=== PATIENT | female | born 1980 | race Caucasian/White ===

== ENCOUNTER 2016-07-31 22:54 | Emergency (ER) | payer OTHER ==
[~2016-07-31] VITALS: Ht 170.2 cm; Wt 145.0 kg
[~2016-07-31 22:54] MED LIST: ADDERALL XR 1010 MG PO; ADDERALL XR 2020 MG PO; ADDERALL20 MG PO; ADVAIR 250-501 EACH IH; ADVAIR 500/501 DISK IH; ALBUTEROL SULF8.5 GM IH; ALBUTEROL17 G1 IH; ALBUTEROL17 GM IH; ALBUTEROL2.5 MG/3 M IH; AMOX TR-K CLV1 EAC4 PO; ATARAX,VISTARIL25 MG PO; ATARAX10 MG PO; ATIVAN0.5 MG PO; ATROVENT 00.5 MG/2.5 IH; AUGMENTIN875 MG PO; AZITHROMYCIN250 MG1 PO; AZITHROMYCIN500 M1 PO; BACTRIM,SEPT1 TABLET PO; BENTYL10 MG PO; BENZONATATE100 MG PO; BIAXIN500 MG PO; CALMOSEPTINE O3.5 GM TP; CELEXA10 MG PO; CELEXA20 MG PO; CITALOPRAM HBR10 MG PO; CITALOPRAM HBR20 MG PO; CITALOPRAM HBR40 MG PO; CLARITIN,ALAVAR10 MG PO; CLONAZEPAM0.5 MG PO; COMBIVENT200 INHALA IH; CYCLOBENZAPRINE10 MG PO; DIFLUCAN150 MG PO; DUONEB 2.5-0.5 M3 ML AEROSOL; ERYTHROMYC1 APPLICAT RIGHT EYE; FERROUS SULFAT325 MG PO; FLEXERIL10 MG PO; FLONASE16 G1 BOTH NARES; FLOVENT 11120 INHALA IH; FUROSEMIDE20 MG PO; GUANFACINE HCL2 MG PO; HYDROCHLOROTH12.5 M3 PO; HYDROCODON-ACE1 EAC7 PO; IRON325 M1 PO; IRON325 MG PO; KEFLEX500 MG PO; KETOCONAZOLE60 GM TP; KLONOPIN0.5 M1 PO; KLONOPIN1 MG PO; LEVAQUIN750 MG PO; LIDOCAINE700 MG TD; LISINIPRIL PO; LORADAMED10 MG PO; LORATADINE10 M2 PO; Levaquin PO; MICONAZOLE NITR30 GM TP; MICONAZOLE NITR45 GM VG; MILK OF MAGN PO; MOBIC15 MG PO; MONTELUKAST SOD10 MG PO; MOTRIN800 MG PO; MYCOSTATIN15 GM PO; NAPROSYN500 MG PO; NAPROXEN500 MG PO; NORCO 5/3251 TABLET PO; NYAMYC60 GM TP; NYSTATIN-TRIAMC15 G1 TP; NYSTATIN15 GM TP; NYSTOP60 GM TP; OLEPTRO ER150 MG PO; OMEPRAZOLE40 M1 PO; PERCOCET 5/31 TABLET PO; PHENERGAN-CODE120 ML PO; PREDNISONE PO; PREDNISONE10 MG PO; PREDNISONE20 MG PO; PREDNISONE5 MG PO; PREDNISONE50 MG PO; PROAIR HFA8.5 GM IH; PROCTOSOL-HC28.35 GM PR; PROVENTIL,2.5 MG/3 M IH; PROVENTIL2.5 MG/3 M IH; PROZAC10 MG PO; PULMICORT90 MICROGR IH; RISPERIDONE0.5 MG PO; SEREVENT DISKU50 MCG IH; SINGULAIR10 MG PO; SKELAXIN400 M1 PO; SPIRIVA RESPIMAT4 GM IH; SPIRIVA1 INHALATI IH; SYMBICORT60 INHALAT IH; TAMIFLU75 MG PO; TESSALON PERLE100 MG PO; TRILEPTAL300 MG PO; ULTRAM50 MG PO; VALACYCLOVIR1000 MG PO; VALACYCLOVIR500 MG PO; VALIUM2 MG PO; VALIUM5 MG PO; VENTOLIN HFA18 GM; VENTOLIN HFA18 GM IH; VYVANSE30 MG PO; VYVANSE40 MG PO; WELLBUTRIN XL150 MG PO; ZITHROMAX Z-PA250 MG PO; ZITHROMAX250 MG PO; ZITHROMAX500 MG PO; ZYRTEC10 M2 PO
[2016-08-01 00:21] LABS: CHLORIDE 108 mEq/L (99-109); POTASSIUM 3.4 mEq/L (3.7-5.4); SODIUM 142 mEq/L (136-147)
[2016-08-01 00:23] LABS: GLUCOSE 107 mg/dL (70-99)
[2016-08-01 00:24] LABS: ANION GAP 10 MEQ/L (2-14)
[2016-08-01 00:27] LABS: GFR ESTIMATE (CALCULATED) > 59 mL/min/
[2016-08-01 00:28] LABS: UREA NITROGEN (BUN) 10 mg/dL (9-23)
[2016-08-01 00:31] LABS: RED BLOOD COUNT 4.69 M/uL (3.80-5.20); WHITE BLOOD COUNT 8.9 K/uL (4.1-10.2)
[2016-08-01 00:32] LABS: HEMATOCRIT 35.2 % (36.0-46.0); MCH 23.2 PG (29.0-34.0); MCV 75.1 FL (83-99); MEAN PLAT.VOLUME 9.6 uM^3 (9.5-12.4); PLATELET COUNT 370 K/uL (156-360); RBC DIS.WIDTH-CV 14.9 % (11.8-14.6)
[2016-08-01 02:12] LABS: INFLUENZA A VIRAL ANTIGEN NEGATIVE; INFLUENZA B VIRAL ANTIGEN NEGATIVE
[2016-08-01] MEDS ORDERED: PREDNISONE10 MG PO (04:05)
[2016-08-01] MEDS ORDERED: VENTOLIN HFA18 GM IH (04:13)
[2016-08-01 04:31] VITALS: BP 138/67
== END 2016-08-01 04:32 | disposition home or self-care (01) ==
LOC: EME 22:54
PROVIDERS: Emergency Medicine
DX: J45.901 Unspecified asthma with (acute) exacerbation (principal); R11.0 Nausea; J44.9 Chronic obstructive pulmonary disease, unspecified; I10 Essential (primary) hypertension; E11.9 Type 2 diabetes mellitus without complications
CPT/HCPCS: 71020; 80048; 85027; 87502; 94644; 99281; 99284; J2930; J7030; J7644

== ENCOUNTER 2016-08-30 19:02 | Inpatient (IN) | payer OTHER ==
[~2016-08-30] VITALS: Ht 168.9 cm; Wt 166.7 kg
[2016-08-30 20:23] LABS: HEMATOCRIT 35.2 % (36.0-46.0); MCH 23.3 PG (29.0-34.0); MCHC 30.7 G/DL (30.0-36.0); MEAN PLAT.VOLUME 9.2 uM^3 (9.5-12.4); PLATELET COUNT 365 K/uL (156-360); RBC DIS.WIDTH-CV 15.3 % (11.8-14.6); RBC DIS.WIDTH-SD 41.4 % (39-53); RED BLOOD COUNT 4.63 M/uL (3.80-5.20); WHITE BLOOD COUNT 9.3 K/uL (4.1-10.2)
[2016-08-30 20:31] LABS: CHLORIDE 110 mEq/L (99-109); POTASSIUM 3.2 mEq/L (3.7-5.4); SODIUM 144 mEq/L (136-147)
[2016-08-30 20:33] LABS: GLUCOSE 119 mg/dL (70-99)
[2016-08-30 20:34] LABS: ANION GAP 10 MEQ/L (2-14)
[2016-08-30 20:36] LABS: GFR ESTIMATE (CALCULATED) > 59 mL/min/
[2016-08-30 20:37] LABS: UREA NITROGEN (BUN) 12 mg/dL (9-23)
[2016-08-30] MEDS ORDERED: DELTASONE20 M1 PO (22:56)
[2016-08-30] MEDS ORDERED: FLONASE16 G1 BOTH NARES (22:57)
[2016-08-30] MEDS ORDERED: DUONEB 2.5-0.5 M3 ML AEROSOL (22:57)
[2016-08-30] MEDS ORDERED: CHILDREN MULTI1 EACH PO (22:57)
[2016-08-30] MEDS ORDERED: XOLAIR150 MG SC (22:58)
[2016-08-30] MEDS ORDERED: NYSTOP60 GM TP (22:58)
[2016-08-31] VITALS: BP 121/57
[2016-08-31 04:00] VITALS: BP 139/74
[2016-08-31 07:16] VITALS: BP 109/57
[2016-08-31 07:40] LABS: HEMATOCRIT 35.4 % (36.0-46.0); MCH 23.4 PG (29.0-34.0); MCHC 30.5 G/DL (30.0-36.0); MCV 76.8 FL (83-99); MEAN PLAT.VOLUME 9.9 uM^3 (9.5-12.4); PLATELET COUNT 327 K/uL (156-360); RBC DIS.WIDTH-CV 15.3 % (11.8-14.6); RED BLOOD COUNT 4.61 M/uL (3.80-5.20); WHITE BLOOD COUNT 9.6 K/uL (4.1-10.2)
[2016-08-31 07:56] LABS: IRON 18 MCG/DL (35-150)
[2016-08-31 08:01] LABS: ANION GAP 9 MEQ/L (2-14); CHLORIDE 105 MEQ/L (99-109); GFR ESTIMATE (CALCULATED) > 59 mL/min/; GLUCOSE 131 mg/dL (70-99); SAMPLE HEMOLYSIS CHECK 0; SAMPLE ICTERIC CHECK 0; SAMPLE LIPEMIA CHECK 0; SODIUM 139 MEQ/L (136-147); UREA NITROGEN (BUN) 9 mg/dL (9-23)
[2016-08-31 08:03] LABS: POTASSIUM 4.3 MEQ/L (3.7-5.4)
[2016-08-31 08:40] LABS: FERRITIN 6 NG/ML (10-291)
[2016-08-31 11:01] VITALS: BP 136/65
[2016-08-31 14:59] VITALS: BP 146/86
[2016-08-31 20:33] VITALS: BP 145/66
[2016-09-01 00:09] VITALS: BP 102/56
[2016-09-01 04:13] VITALS: BP 126/60
[2016-09-01 06:57] LABS: HEMATOCRIT 35.3 % (36.0-46.0); MCH 23.3 PG (29.0-34.0); MCHC 30.3 G/DL (30.0-36.0); MCV 76.9 FL (83-99); MEAN PLAT.VOLUME 9.8 uM^3 (9.5-12.4); PLATELET COUNT 354 K/uL (156-360); RBC DIS.WIDTH-CV 15.7 % (11.8-14.6); RED BLOOD COUNT 4.59 M/uL (3.80-5.20)
[2016-09-01 07:00] LABS: WHITE BLOOD COUNT 15.7 K/uL (4.1-10.2)
[2016-09-01 07:06] LABS: ANION GAP 9 MEQ/L (2-14); CHLORIDE 104 MEQ/L (99-109); GFR ESTIMATE (CALCULATED) > 59 mL/min/; GLUCOSE 114 mg/dL (70-99); POTASSIUM 4.6 MEQ/L (3.7-5.4); SAMPLE HEMOLYSIS CHECK 0; SAMPLE ICTERIC CHECK 0; SAMPLE LIPEMIA CHECK 0; SODIUM 139 MEQ/L (136-147); UREA NITROGEN (BUN) 14 mg/dL (9-23)
[2016-09-01 08:10] VITALS: BP 119/74
[2016-09-01 11:30] VITALS: BP 132/69
[2016-09-01] MEDS ORDERED: PREDNISONE10 MG PO (14:33)
== END 2016-09-01 16:05 | disposition home or self-care (01) | DRG 191 ==
LOC: EME → EDBD 19:02 → EDOF 23:16 → 5SOUTH 23:16
PROVIDERS: Internal Medicine; Physician Assistant
DX: J44.1 Chronic obstructive pulmonary disease with (acute) exacerbation (principal); Z68.43 Body mass index [BMI] 50.0-59.9, adult; E66.01 Morbid (severe) obesity due to excess calories; E87.6 Hypokalemia; K21.9 Gastro-esophageal reflux disease without esophagitis; G47.33 Obstructive sleep apnea (adult) (pediatric); Z91.5 Personal history of self-harm; F31.9 Bipolar disorder, unspecified; D50.9 Iron deficiency anemia, unspecified; F41.9 Anxiety disorder, unspecified; I10 Essential (primary) hypertension; E11.9 Type 2 diabetes mellitus without complications; G43.909 Migraine, unspecified, not intractable, without status migrainosus; M25.562 Pain in left knee; F60.9 Personality disorder, unspecified; Z90.49 Acquired absence of other specified parts of digestive tract
CPT/HCPCS: 71020; 73560; 80048; 82728; 83540; 84466; 85027; 94640 76; 94644; 94660; 94799; 99202; 99281; 99285; J1100; J1644; J2060; J2405; J2930; J3105; J7644

== ENCOUNTER 2016-11-24 21:21 | Inpatient (IN) | payer OTHER ==
[~2016-11-24] VITALS: Ht 167.6 cm; Wt 162.3 kg
[~2016-11-24 21:21] MED LIST changes: +CHILDREN MULTI1 EACH PO; +DELTASONE20 M1 PO; +XOLAIR150 MG SC
[2016-11-24 21:54] LABS: CARBON DIOXIDE (BICARBONATE) 29.2 MEQ/L (20-31); HEMATOCRIT 37.2 % (36.0-46.0); MCH 23.7 PG (29.0-34.0); MCHC 30.6 G/DL (30.0-36.0); MCV 77.2 FL (83-99); MEAN PLAT.VOLUME 9.1 uM^3 (9.5-12.4); PLATELET COUNT 382 K/uL (156-360); RBC DIS.WIDTH-CV 14.6 % (11.8-14.6); RBC DIS.WIDTH-SD 40.5 % (39-53); RED BLOOD COUNT 4.82 M/uL (3.80-5.20); WHITE BLOOD COUNT 12.2 K/uL (4.1-10.2)
[2016-11-24 22:09] LABS: CHLORIDE 107 mEq/L (99-109); POTASSIUM 3.9 mEq/L (3.7-5.4); SODIUM 140 mEq/L (136-147)
[2016-11-24 22:11] LABS: GLUCOSE 89 mg/dL (70-99)
[2016-11-24 22:12] LABS: ANION GAP 10 MEQ/L (2-14)
[2016-11-24 22:14] LABS: GFR ESTIMATE (CALCULATED) > 59 mL/min/
[2016-11-24 22:15] LABS: UREA NITROGEN (BUN) 8 mg/dL (9-23)
[2016-11-24 22:18] LABS: TROP-I INTERPRETATION NEGATIVE; TROPONIN-I < 0.01 ng/mL (0.0-0.30)
[2016-11-24] MEDS ORDERED: FERROUS SULFAT325 MG PO (23:11)
[2016-11-24] MEDS ORDERED: DAILY VALUE1 EACH PO (23:15)
[2016-11-24] MEDS ORDERED: PREDNISONE10 MG PO (23:16)
[2016-11-24] MEDS ORDERED: IBUPROFEN600 MG PO (23:18)
[2016-11-25 02:17] VITALS: BP 106/61
[2016-11-25 06:23] LABS: BASOPHIL COUNT 0.1 K/uL (0-0.1); EOSINOPHIL (%) 0.4 % (0-5); EOSINOPHIL COUNT 0.1 K/uL (0-0.3); HEMATOCRIT 31.5 % (36.0-46.0); IMMATURE GRANULOCYTE (%) 0.5 % (0.0-0.7); IMMATURE GRANULOCYTE COUNT 0.1 K/uL; INSTRUMENT ABS NEUTROPHIL CT 10.3 K/uL; LYMPHOCYTE COUNT 1.3 K/uL (1.0-2.8); MCH 24.1 PG (29.0-34.0); MCHC 31.4 G/DL (30.0-36.0); MCV 76.8 FL (83-99); MEAN PLAT.VOLUME 9.9 uM^3 (9.5-12.4); MONOCYTE (%) 8.1 % (3-12); NEUTROPHIL (%) 80.4 % (45-76); NEUTROPHIL COUNT 10.3 K/uL (1.8-6.4); PLATELET COUNT 309 K/uL (156-360); RBC DIS.WIDTH-CV 14.7 % (11.8-14.6); RBC DIS.WIDTH-SD 40.6 % (39-53); WHITE BLOOD COUNT 12.8 K/uL (4.1-10.2)
[2016-11-25 06:51] LABS: ANION GAP 6 MEQ/L (2-14); CHLORIDE 104 MEQ/L (99-109); GFR ESTIMATE (CALCULATED) > 59 mL/min/; GLUCOSE 102 mg/dL (70-99); SAMPLE HEMOLYSIS CHECK 0; SAMPLE ICTERIC CHECK 0; SAMPLE LIPEMIA CHECK 0; SODIUM 137 MEQ/L (136-147); UREA NITROGEN (BUN) 9 mg/dL (9-23)
[2016-11-25 08:45] VITALS: BP 113/69
[2016-11-25 10:52] VITALS: BP 110/74
[2016-11-25 14:35] LABS: INFLUENZA A VIRAL ANTIGEN NEGATIVE; INFLUENZA B VIRAL ANTIGEN NEGATIVE
[2016-11-25 14:59] LABS: METH RESISTANT S AUREUS PCR POSITIVE (NEGATIVE)
[2016-11-25 15:00] LABS: PROBE CHECK PASS
[2016-11-25 15:24] VITALS: BP 141/76
[2016-11-25 19:47] VITALS: BP 115/57
[2016-11-25 23:32] VITALS: BP 120/58
[2016-11-26 03:32] VITALS: BP 106/61
[2016-11-26 07:26] LABS: EOSINOPHIL (%) 0 % (0-5); HEMATOCRIT 35.5 % (36.0-46.0); IMMATURE GRANULOCYTE (%) 0.7 % (0.0-0.7); IMMATURE GRANULOCYTE COUNT 0.1 K/uL; LYMPHOCYTE COUNT 0.8 K/uL (1.0-2.8); MCH 23.9 PG (29.0-34.0); MCHC 30.4 G/DL (30.0-36.0); MCV 78.7 FL (83-99); MONOCYTE (%) 2.2 % (3-12); MONOCYTE COUNT 0.4 K/uL (0-0.8); NEUTROPHIL (%) 92.3 % (45-76); PLATELET COUNT 357 K/uL (156-360); RBC DIS.WIDTH-CV 14.7 % (11.8-14.6); RBC DIS.WIDTH-SD 41.6 % (39-53); RED BLOOD COUNT 4.51 M/uL (3.80-5.20); WHITE BLOOD COUNT 16.3 K/uL (4.1-10.2)
[2016-11-26 07:43] VITALS: BP 115/65
[2016-11-26 07:44] LABS: ANION GAP 9 MEQ/L (2-14); CHLORIDE 104 MEQ/L (99-109); GFR ESTIMATE (CALCULATED) > 59 mL/min/; GLUCOSE 124 mg/dL (70-99); POTASSIUM 4.3 MEQ/L (3.7-5.4); SAMPLE HEMOLYSIS CHECK 0; SAMPLE ICTERIC CHECK 0; SAMPLE LIPEMIA CHECK 0; SODIUM 137 MEQ/L (136-147); UREA NITROGEN (BUN) 12 mg/dL (9-23)
[2016-11-26 07:56] LABS: Estimated Average Glucose 108 mg/dL (70-123); HEMOGLOBIN A1c (GLYCOHEMOGLOB) 5.4 % HGB (Below 5.7)
[2016-11-26] MEDS ORDERED: PREDNISONE10 MG PO (09:54)
[2016-11-26] MEDS ORDERED: DOXYCYCLINE HY100 MG PO (09:56)
== END 2016-11-26 11:43 | disposition home or self-care (01) | DRG 190 ==
LOC: EME 21:21 → EDOF 11-25 00:41 → 5WEST 11-25 02:05 → 5SOUTH 11-25 11:07 → 5WEST 11-25 11:07 → 5SOUTH 11-25 14:04
PROVIDERS: Emergency Medicine; Internal Medicine; Student in an Organized Health Care Education/Training Program
DX: J44.1 Chronic obstructive pulmonary disease with (acute) exacerbation (principal); J18.9 Pneumonia, unspecified organism; J45.901 Unspecified asthma with (acute) exacerbation; F43.10 Post-traumatic stress disorder, unspecified; K21.9 Gastro-esophageal reflux disease without esophagitis; R09.02 Hypoxemia; D50.9 Iron deficiency anemia, unspecified; G47.33 Obstructive sleep apnea (adult) (pediatric); F31.9 Bipolar disorder, unspecified; E66.01 Morbid (severe) obesity due to excess calories; Z68.43 Body mass index [BMI] 50.0-59.9, adult; R00.0 Tachycardia, unspecified; F41.9 Anxiety disorder, unspecified
CPT/HCPCS: 71010; 71020; 80048; 82728; 82803; 83036; 83605; 83880; 84484; 85025; 85027; 87040; 87070; 87205; 87449; 87502; 87641; 93005; 94640; 94640 76; 94799; 99202; 99281; 99285; J0456; J0696; J1644; J2920; J2930; J7050

== ENCOUNTER 2016-11-30 19:27 | Inpatient (IN) | payer OTHER ==
[~2016-11-30] VITALS: Ht 167.6 cm; Wt 162.8 kg
[~2016-11-30 19:27] MED LIST changes: +DAILY VALUE1 EACH PO; +DOXYCYCLINE HY100 MG PO; +IBUPROFEN600 MG PO
[2016-11-30 20:44] LABS: EOSINOPHIL (%) 1.1 % (0-5); EOSINOPHIL COUNT 0.1 K/uL (0-0.3); HEMATOCRIT 33.9 % (36.0-46.0); IMMATURE GRANULOCYTE (%) 1.1 % (0.0-0.7); IMMATURE GRANULOCYTE COUNT 0.1 K/uL; INSTRUMENT ABS NEUTROPHIL CT 4.2 K/uL; LYMPHOCYTE COUNT 0.6 K/uL (1.0-2.8); MCH 24.1 PG (29.0-34.0); MCHC 31.3 G/DL (30.0-36.0); MONOCYTE (%) 11.5 % (3-12); MONOCYTE COUNT 0.7 K/uL (0-0.8); NEUTROPHIL (%) 74.5 % (45-76); NEUTROPHIL COUNT 4.2 K/uL (1.8-6.4); PLATELET COUNT 276 K/uL (156-360); RBC DIS.WIDTH-CV 14.5 % (11.8-14.6); RBC DIS.WIDTH-SD 39.9 % (39-53)
[2016-11-30 20:49] LABS: WHITE BLOOD COUNT 5.7 K/uL (4.1-10.2)
[2016-11-30 20:52] LABS: CHLORIDE 104 mEq/L (99-109); POTASSIUM 3.6 mEq/L (3.7-5.4); SODIUM 137 mEq/L (136-147)
[2016-11-30 20:53] LABS: GLUCOSE 77 mg/dL (70-99)
[2016-11-30 20:55] LABS: ANION GAP 8 MEQ/L (2-14)
[2016-11-30 20:57] LABS: GFR ESTIMATE (CALCULATED) > 59 mL/min/
[2016-11-30 20:58] LABS: UREA NITROGEN (BUN) 7 mg/dL (9-23)
[2016-11-30 21:45] LABS: ADD MIUA? YES; BILIRUBIN NEGATIVE; BLOOD NEGATIVE; COLOR YELLOW ((YELLOW)); GLUCOSE (STRIP) NEGATIVE; KETONES NEGATIVE; LEUKOCYTES TRACE; NITRITE NEGATIVE; PROTEIN (STRIP) NEGATIVE; SPECIFIC GRAVITY 1.016 (1.000-1.030)
[2016-11-30 22:07] LABS: BACTERIA RARE /HPF; EPITHELIAL CELLS RARE /HPF; MUCUS TRACE /LPF; RED BLOOD CELLS 0-5 /HPF (0-5); WHITE BLOOD CELLS 0-5 /HPF (0-5)
[2016-12-01] VITALS (7 sets, daily range): BP systolic 95–142; BP diastolic 58–75
[2016-12-01 04:13] LABS: METH RESISTANT S AUREUS PCR NEGATIVE (NEGATIVE)
[2016-12-01 04:15] LABS: PROBE CHECK PASS; SPECIMEN PROCESSING CONTROL PASS
[2016-12-01 11:02] LABS: HEMATOCRIT 35.5 % (36.0-46.0); MCH 24.2 PG (29.0-34.0); MCHC 31.3 G/DL (30.0-36.0); MCV 77.3 FL (83-99); MEAN PLAT.VOLUME 9.6 uM^3 (9.5-12.4); PLATELET COUNT 312 K/uL (156-360); RBC DIS.WIDTH-CV 14.6 % (11.8-14.6); RBC DIS.WIDTH-SD 40.7 % (39-53); RED BLOOD COUNT 4.59 M/uL (3.80-5.20); WHITE BLOOD COUNT 6.1 K/uL (4.1-10.2)
[2016-12-01 11:25] LABS: ANION GAP 8 MEQ/L (2-14); CHLORIDE 104 MEQ/L (99-109); GFR ESTIMATE (CALCULATED) > 59 mL/min/; POTASSIUM 4.3 MEQ/L (3.7-5.4); SAMPLE HEMOLYSIS CHECK 0; SAMPLE ICTERIC CHECK 0; SAMPLE LIPEMIA CHECK 0; SODIUM 138 MEQ/L (136-147); UREA NITROGEN (BUN) 7 mg/dL (9-23)
[2016-12-01 11:27] LABS: GLUCOSE 134 mg/dL (70-99)
[2016-12-02 04:19] VITALS: BP 134/76; BP 137/77
[2016-12-02 07:57] LABS: ANION GAP 10 MEQ/L (2-14); CHLORIDE 106 MEQ/L (99-109); GFR ESTIMATE (CALCULATED) > 59 mL/min/; GLUCOSE 119 mg/dL (70-99); POTASSIUM 4.2 MEQ/L (3.7-5.4); SAMPLE HEMOLYSIS CHECK 0; SAMPLE ICTERIC CHECK 0; SAMPLE LIPEMIA CHECK 0; SODIUM 139 MEQ/L (136-147); UREA NITROGEN (BUN) 10 mg/dL (9-23)
[2016-12-02 08:09] LABS: EOSINOPHIL (%) 0 % (0-5); HEMATOCRIT 35.3 % (36.0-46.0); IMMATURE GRANULOCYTE (%) 3.4 % (0.0-0.7); IMMATURE GRANULOCYTE COUNT 0.3 K/uL; INSTRUMENT ABS NEUTROPHIL CT 7.4 K/uL; LYMPHOCYTE COUNT 0.5 K/uL (1.0-2.8); MCH 23.5 PG (29.0-34.0); MCHC 30.6 G/DL (30.0-36.0); MCV 76.7 FL (83-99); MEAN PLAT.VOLUME 9.5 uM^3 (9.5-12.4); MONOCYTE (%) 5.5 % (3-12); MONOCYTE COUNT 0.5 K/uL (0-0.8); NEUTROPHIL (%) 85.5 % (45-76); NEUTROPHIL COUNT 7.4 K/uL (1.8-6.4); PLATELET COUNT 347 K/uL (156-360); RBC DIS.WIDTH-CV 14.7 % (11.8-14.6); RBC DIS.WIDTH-SD 40.6 % (39-53)
[2016-12-02 08:23] VITALS: BP 138/82
[2016-12-02 08:23] LABS: WHITE BLOOD COUNT 8.6 K/uL (4.1-10.2)
[2016-12-02 12:18] VITALS: BP 135/69
[2016-12-02 17:05] VITALS: BP 140/79
[2016-12-02 20:00] VITALS: BP 135/69
[2016-12-03] VITALS: BP 100/50
[2016-12-03 08:03] VITALS: BP 133/69
[2016-12-03 08:40] LABS: EOSINOPHIL (%) 0 % (0-5); HEMATOCRIT 37.2 % (36.0-46.0); IMMATURE GRANULOCYTE (%) 3.5 % (0.0-0.7); IMMATURE GRANULOCYTE COUNT 0.4 K/uL; INSTRUMENT ABS NEUTROPHIL CT 8.7 K/uL; LYMPHOCYTE COUNT 0.5 K/uL (1.0-2.8); MCH 24.1 PG (29.0-34.0); MCHC 31.2 G/DL (30.0-36.0); MCV 77.2 FL (83-99); MEAN PLAT.VOLUME 9.5 uM^3 (9.5-12.4); MONOCYTE (%) 6.8 % (3-12); MONOCYTE COUNT 0.7 K/uL (0-0.8); NEUTROPHIL (%) 84.6 % (45-76); NEUTROPHIL COUNT 8.7 K/uL (1.8-6.4); PLATELET COUNT 401 K/uL (156-360); RBC DIS.WIDTH-CV 14.8 % (11.8-14.6); RBC DIS.WIDTH-SD 41.1 % (39-53); RED BLOOD COUNT 4.82 M/uL (3.80-5.20); WHITE BLOOD COUNT 10.2 K/uL (4.1-10.2)
[2016-12-03 09:06] LABS: INTERNAL CONTROL VALID? YES
[2016-12-03 09:07] LABS: ANION GAP 9 MEQ/L (2-14); CHLORIDE 103 MEQ/L (99-109); GFR ESTIMATE (CALCULATED) > 59 mL/min/; GLUCOSE 105 mg/dL (70-99); POTASSIUM 4.3 MEQ/L (3.7-5.4); SAMPLE HEMOLYSIS CHECK 0; SAMPLE ICTERIC CHECK 0; SAMPLE LIPEMIA CHECK 0; SODIUM 139 MEQ/L (136-147); UREA NITROGEN (BUN) 14 mg/dL (9-23)
[2016-12-03 16:20] VITALS: BP 126/68
[2016-12-04] VITALS: BP 130/66
[2016-12-04 07:33] VITALS: BP 157/93
[2016-12-04 07:50] LABS: EOSINOPHIL (%) 0 % (0-5); HEMATOCRIT 36.3 % (36.0-46.0); IMMATURE GRANULOCYTE (%) 3.9 % (0.0-0.7); IMMATURE GRANULOCYTE COUNT 0.3 K/uL; INSTRUMENT ABS NEUTROPHIL CT 5.4 K/uL; LYMPHOCYTE COUNT 0.9 K/uL (1.0-2.8); MCH 24.4 PG (29.0-34.0); MCHC 31.1 G/DL (30.0-36.0); MCV 78.2 FL (83-99); MEAN PLAT.VOLUME 9.4 uM^3 (9.5-12.4); MONOCYTE (%) 11.9 % (3-12); MONOCYTE COUNT 0.9 K/uL (0-0.8); NEUTROPHIL (%) 72.1 % (45-76); NEUTROPHIL COUNT 5.4 K/uL (1.8-6.4); PLATELET COUNT 339 K/uL (156-360); RBC DIS.WIDTH-SD 42.5 % (39-53); RED BLOOD COUNT 4.64 M/uL (3.80-5.20); WHITE BLOOD COUNT 7.5 K/uL (4.1-10.2)
[2016-12-04 08:23] LABS: ANION GAP 9 MEQ/L (2-14); CHLORIDE 104 MEQ/L (99-109); GFR ESTIMATE (CALCULATED) > 59 mL/min/; GLUCOSE 92 mg/dL (70-99); POTASSIUM 4.2 MEQ/L (3.7-5.4); SAMPLE HEMOLYSIS CHECK 0; SAMPLE ICTERIC CHECK 0; SAMPLE LIPEMIA CHECK 0; SODIUM 140 MEQ/L (136-147); UREA NITROGEN (BUN) 17 mg/dL (9-23)
[2016-12-04] MEDS ORDERED: CEFTIN500 MG PO (14:44)
[2016-12-04] MEDS ORDERED: ZITHROMAX500 MG PO (14:44)
[2016-12-04] MEDS ORDERED: BENZONATATE100 MG PO (14:45)
[2016-12-04] MEDS ORDERED: MUCINEX600 MG PO (14:46)
[2016-12-04] MEDS ORDERED: TUDORZA PRESS400 MCG IH (14:46)
[2016-12-04] MEDS ORDERED: PREDNISONE20 MG PO (14:46)
[2016-12-04 15:57] LABS: C DIFF TOXIN NEGATIVE (NEGATIVE)
[2016-12-04 16:08] LABS: PROBE CHECK PASS; SPECIMEN PROCESSING CONTROL PASS
== END 2016-12-04 15:56 | disposition home or self-care (01) | DRG 190 ==
LOC: EME 19:27 → EXP 19:27 → 5SOUTH 12-01 00:01 → EDOF 12-01 00:01 → 5SOUTH 12-01 01:04
PROVIDERS: Hospitalist; Internal Medicine; Internal Medicine Pulmonary Disease; Nurse Practitioner Adult Health; Physician Assistant
DX: J44.1 Chronic obstructive pulmonary disease with (acute) exacerbation (principal); J18.9 Pneumonia, unspecified organism; J45.901 Unspecified asthma with (acute) exacerbation; Z91.19 Patient's noncompliance with other medical treatment and regimen; K21.9 Gastro-esophageal reflux disease without esophagitis; D50.9 Iron deficiency anemia, unspecified; G47.33 Obstructive sleep apnea (adult) (pediatric); F41.9 Anxiety disorder, unspecified; F31.9 Bipolar disorder, unspecified; E66.01 Morbid (severe) obesity due to excess calories; Z68.43 Body mass index [BMI] 50.0-59.9, adult; F32.9 Major depressive disorder, single episode, unspecified; E11.9 Type 2 diabetes mellitus without complications; I10 Essential (primary) hypertension; Z91.018 Allergy to other foods; R50.9 Fever, unspecified; R05 Cough; F43.10 Post-traumatic stress disorder, unspecified; R10.31 Right lower quadrant pain; R19.7 Diarrhea, unspecified; R06.00 Dyspnea, unspecified; Z88.8 Allergy status to other drugs, medicaments and biological substances
CPT/HCPCS: 71020; 71260; 74177; 80048; 80198; 81003; 83605; 85025; 85027; 87040; 87070; 87205; 87449; 87493; 87641; 87651 90; 94640; 94640 76; 99202; 99281; 99285; J0456; J0696; J1644; J2930; J7030; J7050; J7512

== ENCOUNTER 2017-01-23 21:14 | Emergency (ER) | payer OTHER ==
[~2017-01-23] VITALS: Ht 167.6 cm; Wt 172.7 kg
[2017-01-23 22:02] LABS: BASOPHIL COUNT 0.1 K/uL (0-0.1); EOSINOPHIL (%) 4.9 % (0-5); EOSINOPHIL COUNT 0.4 K/uL (0-0.3); HEMATOCRIT 31.5 % (36.0-46.0); IMMATURE GRANULOCYTE (%) 0.2 % (0.0-0.7); LYMPHOCYTE COUNT 1.2 K/uL (1.0-2.8); MCH 24.2 PG (29.0-34.0); MCHC 32.1 G/DL (30.0-36.0); MCV 75.5 FL (83-99); MEAN PLAT.VOLUME 9.6 uM^3 (9.5-12.4); MONOCYTE (%) 8.8 % (3-12); MONOCYTE COUNT 0.8 K/uL (0-0.8); NEUTROPHIL (%) 70.9 % (45-76); PLATELET COUNT 279 K/uL (156-360); RBC DIS.WIDTH-CV 14.5 % (11.8-14.6); RBC DIS.WIDTH-SD 39.4 % (39-53); RED BLOOD COUNT 4.17 M/uL (3.80-5.20); WHITE BLOOD COUNT 8.5 K/uL (4.1-10.2)
[2017-01-23 22:12] LABS: CHLORIDE 107 mEq/L (99-109); POTASSIUM 3.2 mEq/L (3.7-5.4); SODIUM 139 mEq/L (136-147)
[2017-01-23 22:13] LABS: GLUCOSE 102 mg/dL (70-99)
[2017-01-23 22:15] LABS: ANION GAP 10 MEQ/L (2-14)
[2017-01-23 22:17] LABS: GFR ESTIMATE (CALCULATED) > 59 mL/min/
[2017-01-23 22:18] LABS: UREA NITROGEN (BUN) 6 mg/dL (9-23)
[2017-01-23 22:23] LABS: TROP-I INTERPRETATION NEGATIVE; TROPONIN-I < 0.01 ng/mL (0.0-0.30)
[2017-01-24 00:32] LABS: TROP-I INTERPRETATION NEGATIVE; TROPONIN-I < 0.01 ng/mL (0.0-0.30)
[2017-01-24 01:11] VITALS: BP 104/65
== END 2017-01-24 01:12 | disposition home or self-care (01) ==
LOC: EME → EDBD 21:14 → EME 01-24 01:12
PROVIDERS: Emergency Medicine
DX: R07.89 Other chest pain (principal); J44.9 Chronic obstructive pulmonary disease, unspecified; I10 Essential (primary) hypertension; E11.9 Type 2 diabetes mellitus without complications; F32.9 Major depressive disorder, single episode, unspecified; G43.909 Migraine, unspecified, not intractable, without status migrainosus
CPT/HCPCS: 71010; 80048; 84484; 85025; 93005; 99281; 99284

== ENCOUNTER → 2017-01-23 | Outpatient (CLI) | payer OTHER ==
[~2017-01-23] VITALS: Ht 167.6 cm; Wt 172.5 kg
[~2017-01-23] MED LIST changes: +24HOUR ALLERGY10 MG PO; +ADDERALL XR 2525 MG PO; +CEFTIN500 MG PO; +MUCINEX600 MG PO; +TUDORZA PRESS400 MCG IH; +[UNRECOGNIZED DRUG - OTHER] SC
[2017-01-23 15:13] LABS: HEMATOCRIT 34.7 % (36.0-46.0); MCHC 32.9 G/DL (30.0-36.0); MCV 76.1 FL (83-99); MEAN PLAT.VOLUME 10.2 uM^3 (9.5-12.4); PLATELET COUNT 303 K/uL (156-360); RBC DIS.WIDTH-CV 14.7 % (11.8-14.6); RBC DIS.WIDTH-SD 40.1 % (39-53); RED BLOOD COUNT 4.56 M/uL (3.80-5.20)
== END | disposition home or self-care (01) ==
LOC: AMB 12-19 14:00
PROVIDERS: Specialist
DX: K29.70 Gastritis, unspecified, without bleeding (principal); B96.81 Helicobacter pylori [H. pylori] as the cause of diseases classified elsewhere; K20.0 Eosinophilic esophagitis; R11.0 Nausea; D50.9 Iron deficiency anemia, unspecified; F41.8 Other specified anxiety disorders; I10 Essential (primary) hypertension; E66.9 Obesity, unspecified; Z68.44 Body mass index [BMI] 60.0-69.9, adult; G47.30 Sleep apnea, unspecified; F90.1 Attention-deficit hyperactivity disorder, predominantly hyperactive type
CPT/HCPCS: 85027; 88305; 88342 TC; 93005; 94640; J2250; J2405; J3010

== ENCOUNTER 2017-03-21 23:11 | Emergency (ER) | payer OTHER ==
[~2017-03-21] VITALS: Ht 167.6 cm; Wt 166.4 kg
[2017-03-22 00:23] LABS: ADD MIUA? YES; BILIRUBIN NEGATIVE; BLOOD NEGATIVE; COLOR YELLOW ((YELLOW)); GLUCOSE (STRIP) NEGATIVE; KETONES NEGATIVE; LEUKOCYTES LARGE; NITRITE NEGATIVE; PROTEIN (STRIP) 30
[2017-03-22 00:26] LABS: HEMATOCRIT 32.9 % (36.0-46.0); MCH 23.5 PG (29.0-34.0); MCHC 30.7 G/DL (30.0-36.0); MCV 76.7 FL (83-99); MEAN PLAT.VOLUME 9.3 uM^3 (9.5-12.4); PLATELET COUNT 348 K/uL (156-360); RBC DIS.WIDTH-CV 13.8 % (11.8-14.6); RBC DIS.WIDTH-SD 38.1 % (39-53); RED BLOOD COUNT 4.29 M/uL (3.80-5.20)
[2017-03-22 00:39] LABS: CHLORIDE 108 mEq/L (99-109); POTASSIUM 3.9 mEq/L (3.7-5.4); SODIUM 141 mEq/L (136-147)
[2017-03-22 00:39] LABS: EPITHELIAL CELLS 2+ /HPF; RED BLOOD CELLS NONE SEEN /HPF (0-5); WHITE BLOOD CELLS 30-40 /HPF (0-5)
[2017-03-22 00:40] LABS: BACTERIA 3+ /HPF; MUCUS 2+ /LPF; UCUL ADDED? YES
[2017-03-22 00:41] LABS: GLUCOSE 95 mg/dL (70-99)
[2017-03-22 00:42] LABS: ANION GAP 9 MEQ/L (2-14)
[2017-03-22 00:44] LABS: GFR ESTIMATE (CALCULATED) > 59 mL/min/
[2017-03-22 00:45] LABS: UREA NITROGEN (BUN) 14 mg/dL (9-23)
[2017-03-22] MEDS ORDERED: ZOFRAN4 MG PO (02:11)
[2017-03-22] MEDS ORDERED: KEFLEX500 MG PO (02:12)
[2017-03-22 02:30] VITALS: BP 123/87
== END 2017-03-22 02:36 | disposition home or self-care (01) ==
LOC: EME → EDBD 23:11 → EME 03-22 02:36
PROVIDERS: Emergency Medicine
DX: N39.0 Urinary tract infection, site not specified (principal); R11.2 Nausea with vomiting, unspecified; E11.9 Type 2 diabetes mellitus without complications; I10 Essential (primary) hypertension; J44.9 Chronic obstructive pulmonary disease, unspecified
CPT/HCPCS: 80048; 81003; 85027; 87086; 99281; 99285; J2405; J7030

== ENCOUNTER 2017-04-01 01:37 | Inpatient (IN) | payer OTHER ==
[~2017-04-01] VITALS: Ht 167.6 cm; Wt 165.4 kg
[~2017-04-01 01:37] MED LIST changes: +CELEXA40 MG PO; -CITALOPRAM HBR40 MG PO; +ZOFRAN4 MG PO
[2017-04-01 05:27] LABS: BICARBONATE 26.5 mEq/L (22-26); CARBOXY HGB 1.4 % (0-5); COMMENTS - BLOOD GASES A+C+; DEVICE ROOM AIR; FI02 21 %; METHEMOGLOBIN 0.7 % (0-1.5); O2 FLOW 0 L/MIN; PCO2 40 mm Hg (35-45); PO2 55 mm Hg (80-100); SITE LR; pH 7.43 (7.35-7.45)
[2017-04-01 05:28] LABS: TOTAL RESP RATE 25 resp/min
[2017-04-01 05:34] LABS: HEMATOCRIT 33.2 % (36.0-46.0); MCH 23.8 PG (29.0-34.0); MCHC 31.3 G/DL (30.0-36.0); PLATELET COUNT 322 K/uL (156-360); RBC DIS.WIDTH-CV 13.5 % (11.8-14.6); RBC DIS.WIDTH-SD 36.8 % (39-53); RED BLOOD COUNT 4.37 M/uL (3.80-5.20); WHITE BLOOD COUNT 11.3 K/uL (4.1-10.2)
[2017-04-01 05:45] LABS: CHLORIDE 107 mEq/L (99-109); POTASSIUM 3.9 mEq/L (3.7-5.4); SODIUM 140 mEq/L (136-147)
[2017-04-01] MEDS ORDERED: CLARITIN,ALAVAR10 MG PO (05:45)
[2017-04-01] MEDS ORDERED: ZOFRAN4 MG PO (05:46)
[2017-04-01 05:47] LABS: GLUCOSE 117 mg/dL (70-99)
[2017-04-01 05:48] LABS: ANION GAP 12 MEQ/L (2-14)
[2017-04-01] MEDS ORDERED: NUCALA100 MG SC (05:48)
[2017-04-01] MEDS ORDERED: SPIRIVA1 INHALATI IH (05:48)
[2017-04-01 05:51] LABS: GFR ESTIMATE (CALCULATED) > 59 mL/min/
[2017-04-01 05:52] LABS: UREA NITROGEN (BUN) 9 mg/dL (9-23)
[2017-04-01 15:34] LABS: POINT-OF-CARE METER ID UU13113747
[2017-04-01] MEDS ORDERED: WELLBUTRIN XL300 MG PO (15:39)
[2017-04-01] MEDS ORDERED: COLACE100 MG PO (16:02)
[2017-04-01] MEDS ORDERED: EPIPEN ADU0.3 MG/0.3 IM (16:19)
[2017-04-01 17:33] VITALS: BP 139/78
[2017-04-01 19:56] VITALS: BP 123/64
[2017-04-01 23:32] VITALS: BP 121/69
[2017-04-02 05:02] VITALS: BP 107/58
[2017-04-02 06:35] LABS: EOSINOPHIL (%) 0 % (0-5); HEMATOCRIT 33.4 % (36.0-46.0); IMMATURE GRANULOCYTE (%) 0.8 % (0.0-0.7); IMMATURE GRANULOCYTE COUNT 0.1 K/uL; INSTRUMENT ABS NEUTROPHIL CT 12.3 K/uL; LYMPHOCYTE COUNT 0.6 K/uL (1.0-2.8); MCH 23.4 PG (29.0-34.0); MCHC 30.5 G/DL (30.0-36.0); MCV 76.6 FL (83-99); MEAN PLAT.VOLUME 9.6 uM^3 (9.5-12.4); MONOCYTE (%) 2.3 % (3-12); MONOCYTE COUNT 0.3 K/uL (0-0.8); NEUTROPHIL (%) 92.7 % (45-76); NEUTROPHIL COUNT 12.3 K/uL (1.8-6.4); PLATELET COUNT 344 K/uL (156-360); RBC DIS.WIDTH-CV 13.5 % (11.8-14.6); RED BLOOD COUNT 4.36 M/uL (3.80-5.20); WHITE BLOOD COUNT 13.2 K/uL (4.1-10.2)
[2017-04-02 07:02] LABS: ANION GAP 6 MEQ/L (2-14); CHLORIDE 107 MEQ/L (99-109); GFR ESTIMATE (CALCULATED) > 59 mL/min/; GLUCOSE 147 mg/dL (70-99); MAGNESIUM 2.4 mg/dl (1.3-2.7); POTASSIUM 4.4 MEQ/L (3.7-5.4); SAMPLE HEMOLYSIS CHECK 0; SAMPLE ICTERIC CHECK 0; SAMPLE LIPEMIA CHECK 0; SODIUM 140 MEQ/L (136-147); UREA NITROGEN (BUN) 11 mg/dL (9-23)
[2017-04-02 07:18] VITALS: BP 100/66
[2017-04-02] MEDS ORDERED: SPIRIVA RESPIMAT4 GM IH (10:57)
[2017-04-02] MEDS ORDERED: PREDNISONE10 MG PO (10:57)
[2017-04-02] MEDS ORDERED: AZITHROMYCIN500 M1 PO (10:57)
[2017-04-02 11:24] VITALS: BP 110/70
[2017-04-02] MEDS ORDERED: ATROVENT H200 INHALA IH (11:55)
== END 2017-04-02 11:50 | disposition home or self-care (01) | DRG 189 ==
LOC: EME 01:37 → EDOF 05:01 → ENRESERV 05:07 → EDOF 13:57 → 5EAST 13:57 → ENRESERV 13:59 → 5EAST 16:39
PROVIDERS: Hospitalist; Internal Medicine; Physician Assistant Medical
DX: J96.01 Acute respiratory failure with hypoxia (principal); J45.51 Severe persistent asthma with (acute) exacerbation; D72.1 Eosinophilia; E66.01 Morbid (severe) obesity due to excess calories; Z68.43 Body mass index [BMI] 50.0-59.9, adult; E11.65 Type 2 diabetes mellitus with hyperglycemia; T38.0X5A Adverse effect of glucocorticoids and synthetic analogues, initial encounter; G47.33 Obstructive sleep apnea (adult) (pediatric); I10 Essential (primary) hypertension; F32.9 Major depressive disorder, single episode, unspecified; Z23 Encounter for immunization; Z79.51 Long term (current) use of inhaled steroids; Z87.01 Personal history of pneumonia (recurrent)
CPT/HCPCS: 36600; 71020; 80048; 82803; 82948; 83605; 83735; 85025; 85027; 90686; 93005; 94640; 94640 76; 94799; 99202; 99281; 99285; J1650; J1815; J1885; J2930; J3475

== ENCOUNTER 2017-05-28 17:46 | Emergency (ER) | payer OTHER ==
[~2017-05-28] VITALS: Ht 167.6 cm; Wt 161.8 kg
[~2017-05-28 17:46] MED LIST changes: +ATROVENT H200 INHALA IH; +COLACE100 MG PO; +EPIPEN ADU0.3 MG/0.3 IM; +NUCALA100 MG SC; +WELLBUTRIN XL300 MG PO
[2017-05-28 20:34] LABS: HEMATOCRIT 33.4 % (36.0-46.0); MCH 23.9 PG (29.0-34.0); MCHC 31.1 G/DL (30.0-36.0); MCV 76.8 FL (83-99); MEAN PLAT.VOLUME 8.8 uM^3 (9.5-12.4); PLATELET COUNT 338 K/uL (156-360); RBC DIS.WIDTH-CV 14.6 % (11.8-14.6); RBC DIS.WIDTH-SD 40.6 % (39-53); RED BLOOD COUNT 4.35 M/uL (3.80-5.20); WHITE BLOOD COUNT 8.9 K/uL (4.1-10.2)
[2017-05-28 20:44] LABS: CHLORIDE 106 mEq/L (99-109); POTASSIUM 4.3 mEq/L (3.7-5.4); SODIUM 140 mEq/L (136-147)
[2017-05-28 20:46] LABS: GLUCOSE 89 mg/dL (70-99)
[2017-05-28 20:48] LABS: ANION GAP 9 MEQ/L (2-14)
[2017-05-28 20:49] LABS: SERUM ETHYL ALCOHOL < 10 mg/dL
[2017-05-28 20:50] LABS: GFR ESTIMATE (CALCULATED) > 59 mL/min/
[2017-05-28 20:52] LABS: UREA NITROGEN (BUN) 11 mg/dL (9-23)
[2017-05-28 20:53] LABS: SALICYLATE < 5.0 MG/DL (15-30)
[2017-05-28 21:44] LABS: ADD MIUA? YES; BILIRUBIN NEGATIVE; BLOOD NEGATIVE; COLOR YELLOW ((YELLOW)); GLUCOSE (STRIP) NEGATIVE; KETONES NEGATIVE; LEUKOCYTES LARGE; NITRITE NEGATIVE; PROTEIN (STRIP) 30; SPECIFIC GRAVITY 1.026 (1.000-1.030); UROBILINOGEN 0.2 MG/DL (0.2-1.0)
[2017-05-28 21:53] LABS: PHENCYCLIDINE NEGATIVE (25 ng/mL); THC CANNABINOIDS NEGATIVE (50 ng/mL)
[2017-05-28 21:54] LABS: AMPHETAMINE NEGATIVE (500 ng/mL); BARBITURATES NEGATIVE (200 ng/mL); BENZODIAZEPINES NEGATIVE (150 ng/mL); COCAINE NEGATIVE (150 ng/mL); INTERNAL CONTROLS VALID? YES; METHADONE NEGATIVE (200 ng/mL); METHAMPHETAMINE NEGATIVE (500 ng/mL); OPIATES (MORPHINE) NEGATIVE (100 ng/mL); OXYCODONE NEGATIVE (100 ng/mL); PROPOXYPHENE NEGATIVE (300 ng/mL); TRICYCLIC ANTIDEPRESSANTS NEGATIVE (300 ng/mL)
[2017-05-28 22:03] LABS: BACTERIA 3+ /HPF; EPITHELIAL CELLS 2+ /HPF; MUCUS NONE SEEN /LPF; RED BLOOD CELLS 0-5 /HPF (0-5); UCUL ADDED? YES; WHITE BLOOD CELLS TNTC /HPF (0-5)
[2017-05-28 23:49] VITALS: BP 134/78
== END 2017-05-29 | disposition home or self-care (01) ==
LOC: EME 17:46
PROVIDERS: Emergency Medicine
DX: F32.9 Major depressive disorder, single episode, unspecified (principal); F43.10 Post-traumatic stress disorder, unspecified; F60.3 Borderline personality disorder; Z04.6 Encounter for general psychiatric examination, requested by authority; F41.9 Anxiety disorder, unspecified; E11.9 Type 2 diabetes mellitus without complications; J44.9 Chronic obstructive pulmonary disease, unspecified; I10 Essential (primary) hypertension; F90.9 Attention-deficit hyperactivity disorder, unspecified type; Z88.8 Allergy status to other drugs, medicaments and biological substances
CPT/HCPCS: 80048; 81003; 85027; 87086; 90837; 94640; 99281; 99285; G0480; J7512

== ENCOUNTER 2017-07-21 12:54 | Emergency (ER) | payer OTHER ==
[~2017-07-21] VITALS: Ht 167.6 cm; Wt 172.6 kg
[2017-07-21] MEDS ORDERED: DUONEB 2.5-0.5 M3 ML AEROSOL (15:56)
[2017-07-21] MEDS ORDERED: ALBUTEROL2.5 MG/3 M IH (15:56)
[2017-07-21 16:13] VITALS: BP 123/93
== END 2017-07-21 16:15 | disposition home or self-care (01) ==
LOC: EME 12:54
DX: J45.901 Unspecified asthma with (acute) exacerbation (principal); J06.9 Acute upper respiratory infection, unspecified; J44.9 Chronic obstructive pulmonary disease, unspecified; I10 Essential (primary) hypertension; E11.9 Type 2 diabetes mellitus without complications; F32.9 Major depressive disorder, single episode, unspecified; G43.909 Migraine, unspecified, not intractable, without status migrainosus; F41.9 Anxiety disorder, unspecified; F90.9 Attention-deficit hyperactivity disorder, unspecified type; F43.10 Post-traumatic stress disorder, unspecified; G47.30 Sleep apnea, unspecified
CPT/HCPCS: 94644; 99281; 99284; J7512

== ENCOUNTER 2017-08-31 23:48 | Emergency (ER) | payer OTHER ==
[~2017-08-31] VITALS: Ht 167.6 cm; Wt 174.6 kg
[2017-09-01 00:40] LABS: HEMATOCRIT 34.6 % (36.0-46.0); MCH 23.8 PG (29.0-34.0); MCHC 31.8 G/DL (30.0-36.0); MCV 74.9 FL (83-99); PLATELET COUNT 463 K/uL (156-360); RBC DIS.WIDTH-CV 14.2 % (11.8-14.6); RBC DIS.WIDTH-SD 37.6 % (39-53); RED BLOOD COUNT 4.62 M/uL (3.80-5.20); WHITE BLOOD COUNT 8.4 K/uL (4.1-10.2)
[2017-09-01 00:45] LABS: CHLORIDE 106 mEq/L (99-109); POTASSIUM 3.8 mEq/L (3.7-5.4); SODIUM 136 mEq/L (136-147)
[2017-09-01 00:47] LABS: GLUCOSE 101 mg/dL (70-99)
[2017-09-01 00:51] LABS: CREATININE 0.7 mg/dL (0.6-1.3); GFR ESTIMATE (CALCULATED) > 59 mL/min/
[2017-09-01 00:52] LABS: UREA NITROGEN (BUN) 9 mg/dL (9-23)
[2017-09-01 00:53] LABS: TROP-I INTERPRETATION NEGATIVE; TROPONIN-I < 0.01 ng/mL (0.0-0.30)
[2017-09-01] MEDS ORDERED: NORCO 5/3251 TABLET PO (03:30)
[2017-09-01] MEDS ORDERED: PEN-VEE K,VEET500 MG PO (03:30)
[2017-09-01 04:01] VITALS: BP 138/83
== END 2017-09-01 04:02 | disposition home or self-care (01) ==
LOC: EME 23:48
DX: R07.89 Other chest pain (principal); R00.2 Palpitations; K04.7 Periapical abscess without sinus; K05.10 Chronic gingivitis, plaque induced; J44.9 Chronic obstructive pulmonary disease, unspecified; I10 Essential (primary) hypertension; F32.9 Major depressive disorder, single episode, unspecified; E11.9 Type 2 diabetes mellitus without complications; F90.9 Attention-deficit hyperactivity disorder, unspecified type; F43.10 Post-traumatic stress disorder, unspecified; Z88.8 Allergy status to other drugs, medicaments and biological substances; Z88.1 Allergy status to other antibiotic agents
CPT/HCPCS: 71046; 80048; 84484; 85027; 93005; 99281; 99284

== ENCOUNTER 2017-11-19 18:22 | Emergency (ER) | payer OTHER ==
[~2017-11-19] VITALS: Ht 167.6 cm; Wt 175.1 kg
[~2017-11-19 18:22] MED LIST changes: +PEN-VEE K,VEET500 MG PO
[2017-11-20] MEDS ORDERED: PREDNISONE20 MG PO (00:46)
[2017-11-20] MEDS ORDERED: FLONASE16 G1 BOTH NARES (00:46)
[2017-11-20] MEDS ORDERED: MUCINEX D ER T1 EACH PO (00:46)
[2017-11-20 00:59] VITALS: BP 140/78
== END 2017-11-20 01:00 | disposition home or self-care (01) ==
LOC: EME 18:22
PROVIDERS: Physician Assistant
DX: T78.40XA Allergy, unspecified, initial encounter (principal); J98.01 Acute bronchospasm; J44.9 Chronic obstructive pulmonary disease, unspecified; F90.9 Attention-deficit hyperactivity disorder, unspecified type; F32.9 Major depressive disorder, single episode, unspecified; I10 Essential (primary) hypertension; E66.01 Morbid (severe) obesity due to excess calories; Z68.44 Body mass index [BMI] 60.0-69.9, adult; K21.9 Gastro-esophageal reflux disease without esophagitis; Z88.8 Allergy status to other drugs, medicaments and biological substances
CPT/HCPCS: 87081; 87502; 87631; 87651 90; 94640; 94640 76; 99281; 99285; J1200; J2930; J7512

== ENCOUNTER 2017-11-25 16:07 | Emergency (ER) | payer OTHER ==
[~2017-11-25] VITALS: Ht 167.6 cm; Wt 173.2 kg
[2017-11-25 16:07] VITALS: BP 149/83
[~2017-11-25 16:07] MED LIST changes: +MUCINEX D ER T1 EACH PO
[2017-11-25 18:08] LABS: CHLORIDE 105 mEq/L (99-109); POTASSIUM 3.8 mEq/L (3.7-5.4); SODIUM 138 mEq/L (136-147)
[2017-11-25 18:10] LABS: GLUCOSE 87 mg/dL (70-99)
[2017-11-25 18:13] LABS: SERUM ETHYL ALCOHOL < 10 mg/dL
[2017-11-25 18:14] LABS: CREATININE 0.7 mg/dL (0.6-1.3); GFR ESTIMATE (CALCULATED) > 59 mL/min/
[2017-11-25 18:16] LABS: HEMATOCRIT 33.1 % (36.0-46.0); HEMOGLOBIN 10.6 G/DL (11.9-15.5); MCH 23.9 PG (29.0-34.0); MCV 74.7 FL (83-99); PLATELET COUNT 456 K/uL (156-360); RBC DIS.WIDTH-CV 14.1 % (11.8-14.6); RBC DIS.WIDTH-SD 38.3 % (39-53); RED BLOOD COUNT 4.43 M/uL (3.80-5.20); UREA NITROGEN (BUN) 7 mg/dL (9-23); WHITE BLOOD COUNT 9.8 K/uL (4.1-10.2)
[2017-11-25 18:17] LABS: ACETAMINOPHEN (TYLENOL) < 10 mcg/mL (10-30); SALICYLATE < 5.0 MG/DL (15-30)
[2017-11-25 19:09] LABS: AMPHETAMINE NEGATIVE (500 ng/mL); BARBITURATES NEGATIVE (200 ng/mL); BENZODIAZEPINES NEGATIVE (150 ng/mL); BUPRENORPHINE NEGATIVE (10 ng/mL); COCAINE NEGATIVE (150 ng/mL); METHADONE NEGATIVE (200 ng/mL); METHAMPHETAMINE NEGATIVE (500 ng/mL); OPIATES (MORPHINE) NEGATIVE (100 ng/mL); OXYCODONE NEGATIVE (100 ng/mL); PHENCYCLIDINE NEGATIVE (25 ng/mL); PROPOXYPHENE NEGATIVE (300 ng/mL); THC CANNABINOIDS NEGATIVE (50 ng/mL); TRICYCLIC ANTIDEPRESSANTS NEGATIVE (300 ng/mL)
== END 2017-11-25 20:37 | disposition home or self-care (01) ==
LOC: EME 16:07
PROVIDERS: Emergency Medicine
DX: F33.9 Major depressive disorder, recurrent, unspecified (principal); J44.9 Chronic obstructive pulmonary disease, unspecified; M79.641 Pain in right hand; F60.3 Borderline personality disorder; W22.09XA Striking against other stationary object, initial encounter
CPT/HCPCS: 73130; 80048; 85027; 90839; 94640; 99281; 99285; G0480; J7512

== ENCOUNTER 2017-12-08 00:18 | Emergency (ER) | payer OTHER ==
[~2017-12-08] VITALS: Ht 170.2 cm; Wt 174.2 kg
[2017-12-08 01:04] LABS: HEMATOCRIT 34.4 % (36.0-46.0); HEMOGLOBIN 10.7 G/DL (11.9-15.5); MCH 23.3 PG (29.0-34.0); MCHC 31.1 G/DL (30.0-36.0); MCV 74.9 FL (83-99); PLATELET COUNT 353 K/uL (156-360); RBC DIS.WIDTH-CV 14.5 % (11.8-14.6); RED BLOOD COUNT 4.59 M/uL (3.80-5.20)
[2017-12-08 01:08] LABS: ALBUMIN 3.9 g/dL (3.2-4.8); CHLORIDE 105 mEq/L (99-109); POTASSIUM 3.9 mEq/L (3.7-5.4); SODIUM 139 mEq/L (136-147)
[2017-12-08 01:10] LABS: GLUCOSE 107 mg/dL (70-99)
[2017-12-08 01:11] LABS: TOTAL PROTEIN 6.7 g/dL (6.4-8.3)
[2017-12-08 01:13] LABS: TOTAL BILIRUBIN 0.3 mg/dL (0.0-1.0)
[2017-12-08 01:14] LABS: ALKALINE PHOSPHATASE 117 IU/L (3-129); CREATININE 0.7 mg/dL (0.6-1.3); GFR ESTIMATE (CALCULATED) > 59 mL/min/
[2017-12-08 01:15] LABS: UREA NITROGEN (BUN) 9 mg/dL (9-23)
[2017-12-08 01:16] LABS: AST (GOT) 17 IU/L (2-34)
[2017-12-08 01:17] LABS: ALT (GPT) 12 IU/L (3-49)
[2017-12-08 01:24] LABS: QUANTITATIVE HCG < 4.0 MIU/ML
[2017-12-08 01:55] LABS: APPEARANCE CLOUDY ((CLEAR)); BILIRUBIN NEGATIVE; BLOOD NEGATIVE; COLOR YELLOW ((YELLOW)); GLUCOSE (STRIP) NEGATIVE; KETONES NEGATIVE; LEUKOCYTES LARGE; NITRITE NEGATIVE; PROTEIN (STRIP) NEGATIVE; SPECIFIC GRAVITY 1.009 (1.000-1.030); UROBILINOGEN 0.2 MG/DL (0.2-1.0)
[2017-12-08 02:09] LABS: BACTERIA 1+ /HPF; EPITHELIAL CELLS 3+ /HPF; MUCUS TRACE /LPF; UCUL ADDED? NO; WHITE BLOOD CELLS 0-5 /HPF (0-5)
[2017-12-08] MEDS ORDERED: BENTYL10 MG PO (03:23)
[2017-12-08] MEDS ORDERED: ZOFRAN ODT4 MG PO (03:24)
[2017-12-08 03:38] VITALS: BP 151/98
[2017-12-08 06:56] LABS: LIPASE 10 U/L (1.0-51.0)
== END 2017-12-08 03:39 | disposition home or self-care (01) ==
LOC: EXP 00:18 → EME 00:18 → EXP 03:39
DX: R10.84 Generalized abdominal pain (principal); R11.2 Nausea with vomiting, unspecified; Z90.49 Acquired absence of other specified parts of digestive tract; E11.9 Type 2 diabetes mellitus without complications; J44.9 Chronic obstructive pulmonary disease, unspecified; I10 Essential (primary) hypertension; F32.9 Major depressive disorder, single episode, unspecified; F90.9 Attention-deficit hyperactivity disorder, unspecified type; F41.9 Anxiety disorder, unspecified; F43.10 Post-traumatic stress disorder, unspecified; G47.30 Sleep apnea, unspecified; Z88.8 Allergy status to other drugs, medicaments and biological substances
CPT/HCPCS: 74176; 80053; 81003; 83690; 84702; 85027; 99281; 99285

== ENCOUNTER 2018-01-04 21:42 | Emergency (ER) | payer OTHER ==
[~2018-01-04] VITALS: Ht 167.6 cm; Wt 178.3 kg
[~2018-01-04 21:42] MED LIST changes: +ZOFRAN ODT4 MG PO
[2018-01-04 23:24] LABS: HEMATOCRIT 33.1 % (36.0-46.0); HEMOGLOBIN 10.2 G/DL (11.9-15.5); MCH 23.4 PG (29.0-34.0); MCHC 30.8 G/DL (30.0-36.0); MCV 75.9 FL (83-99); PLATELET COUNT 370 K/uL (156-360); RBC DIS.WIDTH-CV 14.7 % (11.8-14.6); RBC DIS.WIDTH-SD 40.3 % (39-53); RED BLOOD COUNT 4.36 M/uL (3.80-5.20); WHITE BLOOD COUNT 11.1 K/uL (4.1-10.2)
[2018-01-04 23:40] LABS: ALBUMIN 3.9 g/dL (3.2-4.8); CHLORIDE 105 mEq/L (99-109); POTASSIUM 3.3 mEq/L (3.7-5.4); SODIUM 138 mEq/L (136-147)
[2018-01-04 23:42] LABS: GLUCOSE 105 mg/dL (70-99); TOTAL PROTEIN 6.4 g/dL (6.4-8.3)
[2018-01-04 23:44] LABS: TOTAL BILIRUBIN 0.3 mg/dL (0.0-1.0)
[2018-01-04 23:45] LABS: SERUM ETHYL ALCOHOL < 10 mg/dL
[2018-01-04 23:46] LABS: ALKALINE PHOSPHATASE 101 IU/L (3-129); CREATININE 0.7 mg/dL (0.6-1.3); GFR ESTIMATE (CALCULATED) > 59 mL/min/
[2018-01-04 23:47] LABS: AST (GOT) 13 IU/L (2-34); UREA NITROGEN (BUN) 7 mg/dL (9-23)
[2018-01-04 23:49] LABS: ALT (GPT) 11 IU/L (3-49)
[2018-01-05 00:53] LABS: AMPHETAMINE NEGATIVE (500 ng/mL); BARBITURATES NEGATIVE (200 ng/mL); BENZODIAZEPINES NEGATIVE (150 ng/mL); BUPRENORPHINE NEGATIVE (10 ng/mL); COCAINE NEGATIVE (150 ng/mL); METHADONE NEGATIVE (200 ng/mL); METHAMPHETAMINE NEGATIVE (500 ng/mL); OPIATES (MORPHINE) PRESUMPTIVE POSITIVE (100 ng/mL); OXYCODONE PRESUMPTIVE POSITIVE (100 ng/mL); PHENCYCLIDINE NEGATIVE (25 ng/mL); PROPOXYPHENE NEGATIVE (300 ng/mL); THC CANNABINOIDS NEGATIVE (50 ng/mL); TRICYCLIC ANTIDEPRESSANTS NEGATIVE (300 ng/mL)
[2018-01-05] MEDS ORDERED: PEN-VEE K,VEET500 MG PO (01:26)
[2018-01-05] MEDS ORDERED: TORADOL10 MG PO (01:45)
[2018-01-05 01:49] VITALS: BP 163/89
== END 2018-01-05 01:51 | disposition home or self-care (01) ==
LOC: EME 21:42
PROVIDERS: Emergency Medicine
PROC: 3E0T3BZ Introduction of Anesthetic Agent into Peripheral Nerves and Plexi, Percutaneous Approach (ICD-10-PCS; principal; 2018-01-04)
DX: K08.89 Other specified disorders of teeth and supporting structures (principal); F41.9 Anxiety disorder, unspecified; I10 Essential (primary) hypertension; E11.9 Type 2 diabetes mellitus without complications; J44.9 Chronic obstructive pulmonary disease, unspecified; G47.30 Sleep apnea, unspecified; G43.909 Migraine, unspecified, not intractable, without status migrainosus; F90.9 Attention-deficit hyperactivity disorder, unspecified type; F43.10 Post-traumatic stress disorder, unspecified; F32.9 Major depressive disorder, single episode, unspecified; F39 Unspecified mood [affective] disorder; Z87.19 Personal history of other diseases of the digestive system; Z90.49 Acquired absence of other specified parts of digestive tract; Z91.018 Allergy to other foods; Z88.8 Allergy status to other drugs, medicaments and biological substances; Z91.09 Other allergy status, other than to drugs and biological substances
CPT/HCPCS: 80053; 81025; 84999; 85027; 99281; 99284; G0480

== ENCOUNTER 2018-01-15 23:10 | Emergency (ER) | payer OTHER ==
[~2018-01-15] VITALS: Ht 167.6 cm; Wt 174.1 kg
[~2018-01-15 23:10] MED LIST changes: +TORADOL10 MG PO
[2018-01-16] MEDS ORDERED: HYCODAN SYRUP480 ML PO (00:45)
[2018-01-16] MEDS ORDERED: PREDNISONE50 MG PO (00:45)
[2018-01-16] MEDS ORDERED: ULTRAM50 MG PO (00:45)
[2018-01-16 02:00] VITALS: BP 96/49
== END 2018-01-16 02:21 | disposition home or self-care (01) ==
LOC: EME → EDBD 23:10 → EME 01-16 02:21
DX: J20.9 Acute bronchitis, unspecified (principal); J44.0 Chronic obstructive pulmonary disease with (acute) lower respiratory infection; K08.89 Other specified disorders of teeth and supporting structures; G89.29 Other chronic pain; I10 Essential (primary) hypertension; Z88.1 Allergy status to other antibiotic agents; Z91.040 Latex allergy status; Z88.8 Allergy status to other drugs, medicaments and biological substances; Z91.018 Allergy to other foods; Z79.52 Long term (current) use of systemic steroids
CPT/HCPCS: 71045; 93005; 94640; 99281; 99284

== ENCOUNTER 2018-01-25 02:30 | Inpatient (IN) | payer OTHER ==
[~2018-01-25] VITALS: Ht 167.6 cm; Wt 174.3 kg
[~2018-01-25 02:30] MED LIST changes: +HYCODAN SYRUP480 ML PO
[2018-01-25 03:04] LABS: HEMATOCRIT 33.2 % (36.0-46.0); HEMOGLOBIN 10.3 G/DL (11.9-15.5); MCH 23.3 PG (29.0-34.0); MCV 75.1 FL (83-99); PLATELET COUNT 435 K/uL (156-360); RBC DIS.WIDTH-CV 15.2 % (11.8-14.6); RBC DIS.WIDTH-SD 41.5 % (39-53); RED BLOOD COUNT 4.42 M/uL (3.80-5.20); WHITE BLOOD COUNT 12.1 K/uL (4.1-10.2)
[2018-01-25 03:14] LABS: CHLORIDE 107 mEq/L (99-109); POTASSIUM 3.5 mEq/L (3.7-5.4); SODIUM 140 mEq/L (136-147)
[2018-01-25 03:15] LABS: GLUCOSE 120 mg/dL (70-99)
[2018-01-25 03:19] LABS: CREATININE 0.7 mg/dL (0.6-1.3); GFR ESTIMATE (CALCULATED) > 59 mL/min/
[2018-01-25 03:20] LABS: UREA NITROGEN (BUN) 8 mg/dL (9-23)
[2018-01-25] MEDS ORDERED: PREDNISONE5 MG PO (09:47)
[2018-01-25 11:25] VITALS: BP 131/67
[2018-01-25 15:31] VITALS: BP 144/75
[2018-01-25 19:20] VITALS: BP 114/65
[2018-01-25 23:10] VITALS: BP 122/67
[2018-01-26 04:30] VITALS: BP 115/58
[2018-01-26 07:55] VITALS: BP 133/63
[2018-01-26 10:56] VITALS: BP 122/55
[2018-01-26] MEDS ORDERED: AMOX TR-K CLV1 EAC4 PO (12:22)
[2018-01-26] MEDS ORDERED: SPIRIVA RESPIMAT4 GM IH (12:22)
[2018-01-26] MEDS ORDERED: PREDNISONE10 MG PO (12:22)
[2018-01-26] MEDS ORDERED: ALBUTEROL2.5 MG/3 M IH (13:20)
== END 2018-01-26 15:15 | disposition home or self-care (01) | DRG 190 ==
LOC: EME 02:30 → 4EAST 05:38 → EDOF 05:38 → ENRESERV 05:51 → CANRESERV 05:51 → EDOF 06:21 → ENRESERV 06:23 → 4EAST 08:10 → ENPENDDIS 01-26 → 4EAST 01-26 15:15
PROVIDERS: Emergency Medicine; Hospitalist
PROC: 5A0935Z Assistance with Respiratory Ventilation, Less than 24 Consecutive Hours (ICD-10-PCS; principal; 2018-01-25)
DX: J44.1 Chronic obstructive pulmonary disease with (acute) exacerbation (principal); J45.51 Severe persistent asthma with (acute) exacerbation; J96.01 Acute respiratory failure with hypoxia; E66.01 Morbid (severe) obesity due to excess calories; Z68.44 Body mass index [BMI] 60.0-69.9, adult; G47.33 Obstructive sleep apnea (adult) (pediatric); D72.829 Elevated white blood cell count, unspecified; E11.9 Type 2 diabetes mellitus without complications; K21.9 Gastro-esophageal reflux disease without esophagitis; I10 Essential (primary) hypertension; D64.9 Anemia, unspecified; T65.221A Toxic effect of tobacco cigarettes, accidental (unintentional), initial encounter; F32.9 Major depressive disorder, single episode, unspecified; F90.9 Attention-deficit hyperactivity disorder, unspecified type; F43.10 Post-traumatic stress disorder, unspecified; F41.9 Anxiety disorder, unspecified; Z91.5 Personal history of self-harm; Z79.51 Long term (current) use of inhaled steroids; Z79.52 Long term (current) use of systemic steroids
CPT/HCPCS: 71045; 80048; 82948; 85027; 94002; 94640; 94799; 99281; 99284; J1650; J1815; J2405; J2930; J3475

== ENCOUNTER 2018-03-11 16:29 | Emergency (ER) | payer OTHER ==
[~2018-03-11] VITALS: Ht 167.6 cm; Wt 173.5 kg
[2018-03-11 17:53] LABS: HEMATOCRIT 29.9 % (36.0-46.0); HEMOGLOBIN 9.3 G/DL (11.9-15.5); MCH 23.5 PG (29.0-34.0); MCHC 31.1 G/DL (30.0-36.0); MCV 75.5 FL (83-99); PLATELET COUNT 282 K/uL (156-360); RBC DIS.WIDTH-CV 14.6 % (11.8-14.6); RED BLOOD COUNT 3.96 M/uL (3.80-5.20)
[2018-03-11 18:01] LABS: CHLORIDE 107 mEq/L (99-109); SODIUM 140 mEq/L (136-147)
[2018-03-11 18:03] LABS: GLUCOSE 98 mg/dL (70-99)
[2018-03-11 18:06] LABS: CREATININE 0.6 mg/dL (0.6-1.3); GFR ESTIMATE (CALCULATED) > 59 mL/min/; SERUM ETHYL ALCOHOL < 10 mg/dL
[2018-03-11 18:07] LABS: UREA NITROGEN (BUN) 8 mg/dL (9-23)
[2018-03-11 18:11] LABS: AMPHETAMINE NEGATIVE (500 ng/mL); BARBITURATES NEGATIVE (200 ng/mL); BENZODIAZEPINES NEGATIVE (150 ng/mL); BUPRENORPHINE NEGATIVE (10 ng/mL); COCAINE NEGATIVE (150 ng/mL); METHADONE NEGATIVE (200 ng/mL); METHAMPHETAMINE NEGATIVE (500 ng/mL); OPIATES (MORPHINE) NEGATIVE (100 ng/mL); OXYCODONE NEGATIVE (100 ng/mL); PHENCYCLIDINE NEGATIVE (25 ng/mL); PROPOXYPHENE NEGATIVE (300 ng/mL); THC CANNABINOIDS NEGATIVE (50 ng/mL); TRICYCLIC ANTIDEPRESSANTS NEGATIVE (300 ng/mL)
[2018-03-11 19:59] VITALS: BP 132/89
== END 2018-03-11 20:04 | disposition home or self-care (01) ==
LOC: EME 16:29
DX: F60.3 Borderline personality disorder (principal); F33.9 Major depressive disorder, recurrent, unspecified; I10 Essential (primary) hypertension; E11.9 Type 2 diabetes mellitus without complications; J44.9 Chronic obstructive pulmonary disease, unspecified; F90.9 Attention-deficit hyperactivity disorder, unspecified type; F41.9 Anxiety disorder, unspecified; G47.30 Sleep apnea, unspecified; Z90.49 Acquired absence of other specified parts of digestive tract
CPT/HCPCS: 80048; 85027; 90839; 99281; 99285; G0480